=== PATIENT | female | born 2005 | race Two or more races ===

== ENCOUNTER 2023-10-08 13:40 | Observation (INO) | payer MEDICAID ==
[~2023-10-08] VITALS: Ht 160 cm; Wt 73.0 kg
[2023-10-08] MEDS: LACTATED RINGER'S 1,000 ML IV ONE (16:11)
[2023-10-08] MEDS: ONDANSETRON HCL 4 MG/2 ML VIAL IV ONE (16:12)
== END 2023-10-08 16:50 | disposition home or self-care (01) ==
LOC: LDRP 13:40
PROVIDERS: ADMIT Obstetrics & Gynecology; ATTEND Obstetrics & Gynecology
DX: O21.2 Late vomiting of pregnancy (principal); O62.9 Abnormality of forces of labor, unspecified; Z3A.39 39 weeks gestation of pregnancy
CPT/HCPCS: 59025; 76818; 81002; 96361; 96374; G0378; J2405

== ENCOUNTER 2023-10-12 11:09 | Observation (INO) | payer MEDICAID | END 2023-10-12 12:28 | disposition home or self-care (01) | LOC: UNDOADMOB 11:09 → LDRP 11:09 | PROVIDERS: ADMIT Obstetrics & Gynecology; ATTEND Obstetrics & Gynecology | DX: O48.0 Post-term pregnancy (principal); Z3A.40 40 weeks gestation of pregnancy | CPT/HCPCS: 59025; 76818; 81002; 94760; G0378 ==

== ENCOUNTER 2023-10-14 09:04 | Observation (INO) | payer MEDICAID | END 2023-10-14 12:12 | disposition home or self-care (01) | LOC: LDRP 10:15 | PROVIDERS: ADMIT Obstetrics & Gynecology; ATTEND Obstetrics & Gynecology | DX: O48.0 Post-term pregnancy (principal); Z3A.40 40 weeks gestation of pregnancy; Z79.899 Other long term (current) drug therapy; Z98.890 Other specified postprocedural states | CPT/HCPCS: 59025; 76818; 81002; 94760; G0378 ==

== ENCOUNTER 2023-10-16 12:50 | Observation (INO) | payer MEDICAID ==
[2023-10-16] MEDS ORDERED: PREN-96 PO (13:55)
== END 2023-10-16 14:25 | disposition home or self-care (01) ==
LOC: LDRP 12:50 → UNDOADMOB 12:50 → LDRP 13:03 → UNDODISOB 14:25
PROVIDERS: ADMIT Obstetrics & Gynecology; ATTEND Obstetrics & Gynecology
DX: O48.0 Post-term pregnancy (principal); O09.33 Supervision of pregnancy with insufficient antenatal care, third trimester; Z3A.40 40 weeks gestation of pregnancy
CPT/HCPCS: 59025; 76818; 81002; 94760; G0378

== ENCOUNTER 2023-10-18 00:29 | Inpatient (IN) | payer MEDICAID ==
[~2023-10-18] VITALS: Ht 162.6 cm; Wt 72.1 kg
[~2023-10-18 00:29] MED LIST: PREN-96 PO
[2023-10-18] MEDS ORDERED: LIDOCAINE 2%HCL (LOCAL ANESTH.) INJ 20ML MDV IJ PRN (07:45)
[2023-10-18 08:31] LABS: Basophils # (auto) 0 10 ^3/uL (0-0.2); Basophils % (auto) 0.3 % (0.0-2.0); Eosinophils # (auto) 0.1 10 ^3/uL (0-0.8); Eosinophils % (auto) 0.7 % (0.0-7.0); Hematocrit 36.6 % (36.0-46.0); Hemoglobin 12.6 g/dL (12.2-16.2); Lymphocytes # (auto) 2.2 10 ^3/uL (0.4-5.4); Lymphocytes % (auto) 24.4 % (10.0-50.0); Mean Corpuscular Hemoglobin 30.9 pg (28.0-32.0); Mean Corpuscular Hgb Conc. 34.4 g/dL (32.0-36.0); Mean Corpuscular Volume 89.9 fL (80.0-100.0); Monocytes # (auto) 0.4 10 ^3/uL (0-1.3); Monocytes % (auto) 4.3 % (0.0-12.0); Neutrophils # (auto) 6.4 10 ^3/uL (1.6-8.6); Neutrophils % (auto) 70.3 % (37.0-80.0); Nucleated Red Blood Cells % 0.1 %; Red Blood Cells 4.07 10^6/uL (4.0-5.20); White Blood Cell 9.1 10^3/uL (4.4-10.8)
[2023-10-18 08:43] LABS: Urine Bacteria FEW /hpf (None Seen); Urine Blood Negative /uL (Negative); Urine Clarity Turbid (Clear); Urine Color Colorless (Yellow); Urine Mucus FEW (None Seen); Urine Protein, UAD TRACE (Negative); Urine Specific Gravity 1.018 (1.001-1.035); Urine Urobilinogen Normal (Negative); Urine WBC 56 /hpf (0 - 5); Urine pH 6.5 (5.0-9.0)
[2023-10-18 08:49] LABS: Alanine Aminotransferase 12 U/L (7-40); Alkaline Phosphatase 187 U/L (46-116); Anion Gap 10 (5-15); Aspartate Aminotransferase 12 U/L (13-40); BUN/Creatinine Ratio 13.2 (10.0-20.0); Blood Urea Nitrogen 7 mg/dL (9-23); Calcium 9.7 mg/dL (8.7-10.4); Carbon Dioxide 22 mmol/L (20-30); Chloride 106 mmol/L (98-107); Glucose 103 mg/dL (74-106); Potassium 3.4 mmol/L (3.5-5.1); Sodium 138 mmol/L (136-145)
[2023-10-18 08:50] LABS: Amphetamine Screen, Urine Neg (NEGATIVE); Barbiturate Scree,Urine Neg (NEGATIVE); Benzodiazephine Screen, Urine Neg (NEGATIVE); Cannabinoid Screen, Urine Neg (NEGATIVE); Cocaine Screen, Urine Neg (NEGATIVE); Opiate Scree,Urine Neg (NEGATIVE); Phencyclidine Screen, Urine Neg (NEGATIVE)
[2023-10-18 08:50] LABS: Albumin 3.9 g/dL (3.2-4.8)
[2023-10-18 08:51] LABS: Bilirubin, Total 0.5 mg/dL (0.2-1.0); Total Protein 6.4 g/dL (5.7-8.2)
[2023-10-18 09:02] LABS: INR 0.93 (0.9-1.15); Prothrombin Time 9.9 sec (9.3-11.8)
[2023-10-18] MEDS: miSOPROStol 50 MCG per PRE-CUT 1/2 TAB PO PRN (09:11)
[2023-10-18] MEDS: LACTATED RINGER'S 1,000 ML IV SCH (09:14)
[2023-10-18] MEDS ORDERED: NALOXONE HCL 0.4 MG/ML VIAL IV ONE (21:00)
[2023-10-18] MEDS: ROPIVACAINE HCL 200 ML ONE (21:24)
[2023-10-18] MEDS: ePHEDrine SULFATE 50 MG/ML AMP IV ONE (22:30)
[2023-10-18] MEDS ORDERED: TERBUTALINE SULFATE 1 MG/ML 1ML VIAL SC PRN (23:30)
[2023-10-19] MEDS: LACT. RINGERS/OXYTOCIN 20UNITS 1,000 ML IV SCH
[2023-10-19] MEDS: WITCH HAZEL-GLYCERIN PAD TOP PRN (04:46)
[2023-10-19] MEDS: PHISODERM TOP SOLN 240ML BTL TOP PRN (04:46)
[2023-10-19] MEDS: DERMOPLAST 60ML BOTTLE TOP PRN (04:46)
[2023-10-19 07:06] LABS: RPR Non Reactive (Non Reactive)
[2023-10-19] MEDS: ceFAZolin 2 GM/D5W50ml 50 ML IV ONE (12:10)
[2023-10-19] MEDS ORDERED: GENTAMICIN PER PHARMACY 0 ML IV SCH (14:45)
[2023-10-19] MEDS: ACETAMINOPHEN 325 MG TAB PO ONE (15:02)
[2023-10-19] MEDS ORDERED: METHYLERGONOVINE MALEATE 0.2 MG/ML AMP IM ONE (15:27)
[2023-10-19] MEDS ORDERED: ACETAMINOPHEN 325 MG TAB PO PRN (15:45)
[2023-10-19] MEDS ORDERED: ONDANSETRON ODT 4 MG TAB PO PRN (15:45)
[2023-10-19] MEDS: LACT. RINGERS/OXYTOCIN 20UNITS 500 ML IV ONE ×2 (15:50→15:51)
[2023-10-19] MEDS: ONDANSETRON HCL 4 MG/2 ML VIAL ONE (15:55)
[2023-10-19] MEDS ORDERED: ONDANSETRON HCL 4 MG/2 ML VIAL IV PRN (16:00)
[2023-10-19] MEDS: GENTAMICIN SULFATE 360 MG in D5W 5% 100 ML IV SCH (16:22)
[2023-10-19] MEDS ORDERED: DOCU-265 PO (17:26)
[2023-10-19] MEDS ORDERED: IBUP-1455 PO (17:26)
[2023-10-19] MEDS: AMPICILLIN SOD 2GM INJ 2 GM in SODIUM CHL 0.9% 100 ML IV SCH (17:51)
[2023-10-19] MEDS: IBUPROFEN 800 MG TAB PO SCH (18:03)
[2023-10-19 19:00] VITALS: BP 112/61; PULSE 72; RESP 16; TEMP 97.9; O2SAT 96
[2023-10-19] MEDS ORDERED: ceFAZolin 1GM/50ML 50 ML IV SCH (20:00)
[2023-10-19] MEDS: DOCUSATE SOD 100 MG CAP PO SCH (21:50)
[2023-10-19 23:00] VITALS: BP 100/55; PULSE 71; RESP 16; TEMP 97.9; O2SAT 95
[2023-10-20 03:00] VITALS: BP 90/51; PULSE 67; RESP 16; TEMP 97.9; O2SAT 96
[2023-10-20 07:28] LABS: Basophils # (auto) 0 10 ^3/uL (0-0.2); Basophils % (auto) 0.2 % (0.0-2.0); Eosinophils # (auto) 0 10 ^3/uL (0-0.8); Eosinophils % (auto) 0.3 % (0.0-7.0); Hematocrit 37.7 % (36.0-46.0); Hemoglobin 12.9 g/dL (12.2-16.2); Lymphocytes # (auto) 2.2 10 ^3/uL (0.4-5.4); Lymphocytes % (auto) 13.9 % (10.0-50.0); Mean Corpuscular Hemoglobin 30.9 pg (28.0-32.0); Mean Corpuscular Hgb Conc. 34.2 g/dL (32.0-36.0); Mean Corpuscular Volume 90.4 fL (80.0-100.0); Monocytes # (auto) 1.1 10 ^3/uL (0-1.3); Monocytes % (auto) 6.8 % (0.0-12.0); Neutrophils # (auto) 12.3 10 ^3/uL (1.6-8.6); Neutrophils % (auto) 78.8 % (37.0-80.0); Red Blood Cells 4.17 10^6/uL (4.0-5.20); Red Cell Distribution Width 13.3 % (11.8-14.3); White Blood Cell 15.7 10^3/uL (4.4-10.8)
[2023-10-20 07:30] VITALS: BP 104/66; PULSE 68; RESP 20; TEMP 97.7; O2SAT 96
[2023-10-20] MEDS: DOCUSATE CALCIUM 240 MG CAP PO SCH (09:50)
[2023-10-20 11:15] VITALS: BP 103/63; PULSE 94; RESP 20; TEMP 97.8; O2SAT 99
[2023-10-20] MEDS ORDERED: TRANEXAMIC ACID 1,000 mg/10ml INJ VIAL IV ONE (12:19)
[2023-10-20 15:00] VITALS: BP 105/58; PULSE 80; RESP 18; TEMP 98.3; O2SAT 97
[2023-10-20] MEDS: IBUPROFEN 800 MG TAB PO PRN (17:03)
[2023-10-20 19:00] VITALS: BP 100/55; PULSE 71; RESP 20; TEMP 97.9; O2SAT 97
[2023-10-20 22:56] VITALS: BP 100/55; PULSE 63; RESP 16; TEMP 97.8; O2SAT 95
[2023-10-21 02:45] VITALS: BP 100/55; PULSE 69; RESP 16; TEMP 97.8; O2SAT 95
[2023-10-21 07:00] VITALS: BP 109/69; PULSE 60; RESP 16; TEMP 97.7; O2SAT 99
[2023-10-21 11:00] VITALS: BP 103/66; PULSE 80; RESP 16; TEMP 97.9; O2SAT 98
== END 2023-10-21 12:41 | disposition home or self-care (01) | DRG 542 ==
LOC: LDRP 07:20 → EDSTATUS 07:32
PROVIDERS: ADMIT Obstetrics & Gynecology; ATTEND Obstetrics & Gynecology
PROC: 10E0XZZ Delivery of Products of Conception, External Approach (ICD-10-PCS; principal; 2023-10-19)
PROC: 0DQR0ZZ Repair Anal Sphincter, Open Approach (ICD-10-PCS; 2023-10-19)
PROC: 3E0R3BZ Introduction of Anesthetic Agent into Spinal Canal, Percutaneous Approach (ICD-10-PCS; 2023-10-19)
PROC: 00HU33Z Insertion of Infusion Device into Spinal Canal, Percutaneous Approach (ICD-10-PCS; 2023-10-19)
PROC: 3E033VJ Introduction of Other Hormone into Peripheral Vein, Percutaneous Approach (ICD-10-PCS; 2023-10-19)
DX: O48.0 Post-term pregnancy (principal); Z37.0 Single live birth; O41.1230 Chorioamnionitis, third trimester, not applicable or unspecified; O70.20 Third degree perineal laceration during delivery, unspecified; Z3A.40 40 weeks gestation of pregnancy; Z91.010 Allergy to peanuts
CPT/HCPCS: 36415; 59025; 59200; 59409; 62282; 80053; 80170; 80307; 81001; 82565; 85025; 85610; 85730; 86592; 86803; 86850; 86900; 86901; 94760; 94762; 96360; 96361; 96365; 96366; 96372; G0378; J2405; J2590; J7060